=== PATIENT | male | born 1955 | race American Indian/Alaskan Native ===

== ENCOUNTER 2016-11-10 13:48 | Emergency (ER) | payer MEDICARE ==
[2016-11-10 13:57] VITALS: BP 143/93
[2016-11-10 14:34] LABS: Eosinophils % (Auto) 1.2 % (0.0-4.3); Hematocrit 39.8 % (35.5-45.6); Hemoglobin 12.4 gm/dl (11.8-15.2); Mean Corpuscular HGB Conc 31 % (32-34); Mean Corpuscular Volume 79 fl (84-94); Platelet Count 209 K/mm3 (140-440); Red Blood Count 5.06 M/mm3 (3.65-5.03); Red Cell Distribution Width 19.2 % (13.2-15.2)
[2016-11-10 14:36] LABS: Mean Corpuscular Hemoglobin 25 pg (28-32)
[2016-11-10 14:41] LABS: Albumin/Globulin Ratio 1.2 %; Bilirubin,Total 0.3 mg/dL (0.1-1.2); Chloride 99.7 mmol/L (98-107); Potassium 3.7 mmol/L (3.6-5.0); Total Protein 7.3 g/dL (6.3-8.2)
[2016-11-10 15:29] LABS: Bilirubin,Urine NEG (Negative); Blood,Urine MOD (Negative); Ketones,Urine NEG (Negative); Leukocyte Esterase,Urine SM (Negative); Mucus,Urine FEW /HPF; Nitrite,Urine NEG (Negative); Protein,Urine <15 mg/dL mg/dL (Negative); Urobilinogen,Urine < 2.0 mg/dL (<2.0)
== END 2016-11-11 02:00 | disposition left against medical advice (07) ==
LOC: ED 13:48
DX: M54.9 Dorsalgia, unspecified (principal); Z53.21 Procedure and treatment not carried out due to patient leaving prior to being seen by health care provider
CPT/HCPCS: 36415; 80053; 81001; 83690; 85025

== ENCOUNTER 2019-08-29 16:25 | Emergency (ER) | payer MEDICARE ==
--- NOTE | 2019-08-29 17:08 | Emergency Department Report ---
Blank Doc - Documentation Documentation: 64-year-old male that presents with back pain. HX of colon CA. This initial assessment/diagnostic orders/clinical plan/treatment(s) is/are subject to change based on patient's health status, clinical progression and re- assessment by fellow clinical providers in the ED. Further treatment and workup at subsequent clinical providers discretion. Patient/guardians urged not to elope from the ED as their condition may be serious if not clinically assessed and managed. Initial orders include: 1- Patient sent to [facility] for further evaluation and treatment 2- labs 3- UA
[2019-08-29 18:10] LABS: Hematocrit 48.5 % (35.5-45.6); Hemoglobin 15.6 gm/dl (11.8-15.2); Mean Corpuscular HGB Conc 32 % (32-34); Mean Corpuscular Volume 86 fl (84-94); Platelet Count 191 K/mm3 (140-440); Red Blood Count 5.62 M/mm3 (3.65-5.03); Red Cell Distribution Width 19.8 % (13.2-15.2)
[2019-08-29 18:24] LABS: Alanine Aminotransferase 14 units/L (7-56); Albumin 4.2 g/dL (3.9-5); BUN/Creatinine Ratio 16; Blood Urea Nitrogen 18 mg/dL (9-20); Calcium 9.8 mg/dL (8.4-10.2); Hemolysis Index 10
[2019-08-29 18:31] LABS: Bilirubin,Direct < 0.2 mg/dL (0-0.2)
[2019-08-29 19:05] LABS: Basophils % (Manual) 0 % (0.0-1.8); RBC Morphology Normal; Total Cells Counted 100
[2019-08-29] MEDS ORDERED: ONDANSETRON 4 MG/2 ML INJ IV ONE (23:13)
[2019-08-29] MEDS ORDERED: KETOROLAC 30 MG/1 ML INJ IV ONE (23:13)
--- NOTE | 2019-08-29 23:52 | Emergency Department Report ---
ED Back Pain/Injury HPI - General Chief Complaint: Back Pain/Injury Stated Complaint: BACK PAIN, COLON CANCER Time Seen by Provider: 08/29/19 17:05 Source: patient Limitations: No Limitations - History of Present Illness Initial Comments: Mr. East is a 64-year-old -[place] male with a history of Colon CA, diabetes type 2, hypertension, and arthralgia. He presents today for right flank pain,aching radiating to super pubic. There is no fever or chills, no n/v, no hematuria, pt does endorse increased urination no urgency , no saddle numbness, no weakness, no loss or decrease in bowel or bladder function. pt denies hx of prostate ca, or known kidney stone., Complaint: back pain (flank pain) Onset/Timin -: Gradual, days(s) Similar Symptoms Previously: Yes Place: home Radiation: abdomen, flank Severity: moderate Severity scale (0 -10): 4 Quality: aching Consistency: constant Improves With: none Worsens With: movement Associated Symptoms: denies: weakness, chest pain, difficulty walking, difficulty urinating, fever/chills, nausea/vomiting, shortness of breath - Related Data Previous Rx's Medication Instructions Recorded Last Taken Type HYDROcodone/APAP 5-325 [[place] 1 each PO Q6HR PRN #20 tablet 10/19/14 Unknown Rx 5/325] Meloxicam [Mobic] 7.5 mg PO QDAY #30 tablet 10/19/14 Unknown Rx Acetaminophen [Acetaminophen TAB] 1,000 mg PO Q6HR #30 tablet 08/30/19 Unknown R x cephALEXin [Keflex] 500 mg PO BID 7 Days #14 cap 08/30/19 Unknown Rx Allergies Allergy/AdvReac Type Severity Reaction Status Date / Time No Known Allergies Allergy Unverified 10/19/14 10:11 ED Review of Systems ROS: Stated complaint: BACK PAIN, COLON CANCER Other details as noted in HPI Constitutional: denies: chills, fever Eyes: denies: eye pain, eye discharge, vision change ENT: denies: ear pain, throat pain Respiratory: denies: cough, shortness of breath, wheezing Cardiovascular: as per HPI. denies: chest pain, palpitations, dyspnea on exertion Endocrine: no symptoms reported Gastrointestinal: abdominal pain (superpubic ), nausea, hematemesis. denies: vomiting, diarrhea, constipation, melena Genitourinary: dysuria, frequency. denies: urgency, hematuria, discharge, testicular pain, testicular mass Musculoskeletal: back pain, arthralgia, myalgia (right leg ). denies: joint s welling Skin: denies: rash, lesions Neurological: denies: headache, weakness, paresthesias Psychiatric: denies: anxiety, depression Hematological/Lymphatic: denies: easy bleeding, easy bruising ED Past Medical Hx - Past Medical History Previous Medical History?: Yes Hx Hypertension: Yes Hx Diabetes: Yes Additional medical history: Colon CA - Surgical History Past Surgical History?: Yes Additional Surgical History: LEFT KNEE SURGERY. BILATERAL CARPEL TUNNEL RELEASE. JAW SURGERY - Social History Smoking Status: Never Smoker Substance Use Type: None - Medications Home Medications: Home Medications Medication Instructions Recorded Confirmed Last Taken Type HYDROcodone/APAP 5-325 [[place] 1 each PO Q6HR PRN #20 tablet 10/19/14 Unknown Rx 5/325] Meloxicam [Mobic] 7.5 mg PO QDAY #30 tablet 10/19/14 Unknown Rx Acetaminophen [Acetaminophen TAB] 1,000 mg PO Q6HR #30 tablet 08/30/19 Unknown Rx cephALEXin [Keflex] 500 mg PO BID 7 Days #14 cap 08/30/19 Unknown Rx ED Physical Exam - General Limitations: No Limitations General appearance: alert, in no apparent distress - Head Head exam: Present: atraumatic, normocephalic - Eye Eye exam: Present: normal appearance, PERRL, EOMI Pupils: Present: normal accommodation - ENT ENT exam: Present: mucous membranes moist - Neck Neck exam: Present: normal inspection, full ROM. Absent: tenderness, meningismus, lymphadenopathy - Respiratory Respiratory exam: Present: normal lung sounds bilaterally. Absent: respiratory distress, wheezes, rhonchi, chest wall tenderness - Cardiovascular Cardiovascular Exam: Present: regular rate, normal rhythm, normal heart sounds. Absent: systolic murmur, diastolic murmur, rubs, gallop - GI/Abdominal GI/Abdominal exam: Present: soft, normal bowel sounds. Absent: distended, tenderness, bruit, hernia - Rectal Rectal exam: Present: deferred - Extremities Exam Extremities exam: Present: normal inspection, full ROM, normal capillary refill. Absent: tenderness - Back Exam Back exam: Present: normal inspection, full ROM, tenderness, CVA tenderness (R), paraspinal tenderness. Absent: CVA tenderness (L), vertebral tenderness, rash noted - Expanded Back Exam Expanded Back exam: Absent: saddle anesthesia Back exam: Positive Straight Leg Raise: Right, Left - Neurological Exam Neurological exam: Present: alert, oriented X3, CN II-XII intact, normal gait, reflexes normal - Expanded Neurological Exam Expanded Patient oriented to: Present: person, place, time Speech: Present: fluid speech Motor strength exam: RUE: 5, LUE: 5, RLE: 5, LLE: 5 Best Eye Response (Kenneth): (4) open spontaneously Best Motor Response (Kenneth): (6) obeys commands Best Verbal Response (Kenneth): (5) oriented Kenneth Total: 15 - Psychiatric Psychiatric exam: Present: normal affect, normal mood - Skin Skin exam: Present: warm, dry, intact, normal color ED Course Vital Signs 08/29/19 08/29/19 17:08 23:32 Temperature 97.7 F Pulse Rate 99 H Respiratory 22 16 Rate Blood Pressure 124/95 O2 Sat by Pulse 93 Oximetry ED Medical Decision Making - Lab Data Result diagrams: 08/29/19 17:38 08/29/19 17:38 Labs 08/29/19 08/29/19 08/29/19 17:38 17:38 17:38 WBC 8.7 RBC 5.62 H Hgb 15.6 H Hct 48.5 H MCV 86 MCH 28 MCHC 32 RDW 19.8 H Plt Count 191 [place] % (Auto) Board Member Add Manual Diff Complete Total Counted 100 Seg Neuts % (Manual) 62.0 Band Neutrophils % 0 Lymphocytes % (Manual) 17.0 Reactive Lymphs % (Man) 0 Monocytes % (Manual) 20.0 H Eosinophils % (Manual) 1.0 Basophils % (Manual) 0 Metamyelocytes % 0 Myelocytes % 0 Promyelocytes % 0 Blast Cells % 0 Nucleated RBC % Not Reportable Seg Neutrophils # Man 5.4 Band Neutrophils # 0.0 Lymphocytes # (Manual) 1.5 Abs React Lymphs (Man) 0.0 Monocytes # (Manual) 1.7 H Eosinophils # (Manual) 0.1 Basophils # (Manual) 0.0 Metamyelocytes # 0.0 Myelocytes # 0.0 Promyelocytes # 0.0 Blast Cells # 0.0 WBC Morphology Not Reportable Hypersegmented Neuts Not Reportable Hyposegmented Neuts Not Reportable Hypogranular Neuts Not Reportable Smudge Cells Not Reportable Toxic Granulation Not Reportable Toxic Vacuolation Not Reportable Dohle Bodies Not Reportable Pelger-Huet Anomaly Not Reportable David Rods Not Reportable Platelet Estimate Not Reportable Clumped Platelets Not Reportable Plt Clumps, EDTA Not Reportable Large Platelets Not Reportable Giant Platelets Not Reportable Platelet Satelliting Not Reportable Plt Morphology Comment Not Reportable RBC Morphology Normal Dimorphic RBCs Not Reportable Polychromasia Not Reportable Hypochromasia Not Reportable Poikilocytosis Not Reportable Anisocytosis Not Reportable Microcytosis Not Reportable Macrocytosis Not Reportable Spherocytes Not Reportable Pappenheimer Bodies Not Reportable Sickle Cells Not Reportable Target Cells Not Reportable Tear Drop Cells Not Reportable Ovalocytes Not Reportable Helmet Cells Not Reportable [place] Bodies Not Reportable Palisade Rings Not Reportable [place] Cells Not Reportable Bite Cells Not Reportable Crenated Cell Not Reportable Elliptocytes Not Reportable Acanthocytes (Spur) Not Reportable Rouleaux Not Reportable Hemoglobin C Crystals Not Reportable Schistocytes Not Reportable Malaria parasites Not Reportable Enzo Bodies Not Reportable Hem Pathologist Commnt No Sodium 140 Potassium 4.3 Chloride 100.2 Carbon Dioxide 23 Anion Gap 21 BUN 18 Creatinine 1.1 Estimated GFR > 60 BUN/Creatinine Ratio 16 Glucose 78 Calcium 9.8 Total Bilirubin 0.60 Direct Bilirubin < 0.2 Indirect Bilirubin 0.4 AST 24 ALT 14 Alkaline Phosphatase 124 Troponin T < 0.010 Total Protein 8.1 Albumin 4.2 Albumin/Globulin Ratio 1.1 Urine Color Urine Turbidity Urine pH Ur Specific [place] Urine Protein Urine Glucose (UA) Urine Ketones Urine Blood Urine Nitrite Urine Bilirubin Urine Urobilinogen Ur Leukocyte Esterase Urine WBC (Auto) Urine RBC (Auto) U Epithel Cells (Auto) Urine Mucus 08/29/19 08/30/19 23:36 02:18 WBC RBC Hgb Hct MCV MCH MCHC RDW Plt Count [place] % (Auto) Add Manual Diff Total Counted Seg Neuts % (Manual) Band Neutrophils % Lymphocytes % (Manual) Reactive Lymphs % (Man) Monocytes % (Manual) Eosinophils % (Manual) Basophils % (Manual) Metamyelocytes % Myelocytes % Promyelocytes % Blast Cells % Nucleated RBC % Seg Neutrophils # Man Band Neutrophils # Lymphocytes # (Manual) Abs React Lymphs (Man) Monocytes # (Manual) Eosinophils # (Manual) Basophils # (Manual) Metamyelocytes # Myelocytes # Promyelocytes # Blast Cells # WBC Morphology Hypersegmented Neuts Hyposegmented Neuts Hypogranular Neuts Smudge Cells Toxic Granulation Toxic Vacuolation Dohle Bodies Pelger-Huet Anomaly David Rods Platelet Estimate Clumped Platelets Plt Clumps, EDTA Large Platelets Giant Platelets Platelet Satelliting Plt Morphology Comment RBC Morphology Dimorphic RBCs Polychromasia Hypochromasia Poikilocytosis Anisocytosis Microcytosis Macrocytosis Spherocytes Pappenheimer Bodies Sickle Cells Target Cells Tear Drop Cells Ovalocytes Helmet Cells Garcia-[place] Bodies Palisade Rings [place] Cells Bite Cells Crenated Cell Elliptocytes Acanthocytes (Spur) Rouleaux Hemoglobin C Crystals Schistocytes Malaria parasites Enzo Bodies Hem Pathologist Commnt Sodium Potassium Chloride Carbon Dioxide Anion Gap BUN Creatinine Estimated GFR BUN/Creatinine Ratio Glucose Calcium Total Bilirubin Direct Bilirubin Indirect Bilirubin AST ALT Alkaline Phosphatase Troponin T < 0.010 Total Protein Albumin Albumin/Globulin Ratio Urine Color Yellow Urine Turbidity Clear Urine pH 5.0 Ur Specific [place] 1.021 Urine Protein <15 mg/dl Urine Glucose (UA) Neg Urine Ketones Neg Urine Blood Neg Urine Nitrite Neg Urine Bilirubin Neg Urine Urobilinogen < 2.0 Ur Leukocyte Esterase Mod Urine WBC (Auto) 39.0 H Urine RBC (Auto) 9.0 U Epithel Cells (Auto) 2.0 Urine Mucus Few - Radiology Data Radiology results: report reviewed, image reviewed Findings Reporting MD: Marcus Cook Dictation Time: August 29, 2019 23:28 Transc riptionist: Not available Hair Assistant Date: CT abdomen pelvis wo con INDICATION / CLINICAL INFORMATION: RENAL STONE PROTOCOL!!! Pt complains of RIGHT flank pain.. TECHNIQUE: All CT scans at this location are performed using CT dose reduction for ALARA by means of automated exposure control. COMPARISON: None FINDINGS: No free fluid is seen in the abdomen. Diffuse atherosclerotic changes present without evidence of an aneurysm. There is a single gallstone present in the gallbladder. Small bilateral renal cysts are present. The liver, spleen, pancreas and adrenal glands are normal. In the pelvis, no free fluid is seen. The prostate is enlarged. No enlarged lymph nodes are identified. The bladder and the appendix are normal. IMPRESSION: 1. Small bilateral renal cysts 2. Single gallstone in the gallbladder 3. Prostate enlargement 4. No acute findings. No urinary tract stones are seen Signer Name: Marcus Cook MD FACR Signed: 08/29/2019 11:28 PM Workstation Name: [id number] - Medical Decision Making CT scan single gallstone nonobstructing no gallbladder wall thickening no fever no chills there is no white count. UA consistent with UTI with elevated leukocytes and WBCs , patient advises pain is 1/10 after medications given in ED including IV fluids Toradol and Zofran. He is currently tolerating p.o. intake patient is amatory in ED without symptoms. Patient given Rocephin 1 g IM in ED as there is a concern for securing antibiotics. Will DC with prescription for Keflex p.o. patient will continue to hydrate and follow-up with primary care doctor in 2 to 3 days patient verbalized agreement and understanding with same DC to home in stable condition at this time Critical care attestation.: If time is entered above; I have spent that time in minutes in the direct care of this critically ill patient, excluding procedure time. ED Disposition Clinical Impression: UTI (urinary tract infection) Qualifiers: Urinary tract infection type: acute cystitis Hematuria presence: without juancarlos turia Qualified Code(s): N30.00 - Acute cystitis without hematuria Disposition: DC-01 TO HOME OR SELFCARE Is pt being admited?: No Does the pt Need Aspirin: No Condition: Stable Instructions: Urinary Tract Infection in Men (ED) Prescriptions: Acetaminophen [Acetaminophen TAB] 1,000 mg PO Q6HR #30 tablet cephALEXin [Keflex] 500 mg PO BID 7 Days #14 cap Referrals: ALFREDITO SIMS NP [Primary Care Provider] - 3-5 Days Time of Disposition: 03:34
--- NOTE | 2019-08-30 00:32 | Cat Scan Report ---
CT abdomen pelvis wo con INDICATION / CLINICAL INFORMATION: RENAL STONE PROTOCOL!!! Pt complains of RIGHT flank pain.. TECHNIQUE: All CT scans at this location are performed using CT dose reduction for ALARA by means of automated e xposure control. COMPARISON: None FINDINGS: No free fluid is seen in the abdomen. Diffuse atherosclerotic changes present without evidence of an aneurysm. There is a single gallstone present in the gallbladder. Small bilateral renal cysts are pre sent. The liver, spleen, pancreas and adrenal glands are normal. In the pelvis, no free fluid is seen. The prostate is enlarged. No enlarged lymph nodes are identifie d. The bladder and the appendix are normal. IMPRESSION: 1. Small bilateral renal cysts 2. Single gallstone in the gallbladder 3. Prostate enlargement 4. No acute findings. No urinary tract stones are seen Signer Name: Marcus Cook MD FACR Signed: 08/30/2019 12:28 AM Workstation Name: [id number]
[2019-08-30 02:46] LABS: Bilirubin,Urine NEG (Negative); Blood,Urine NEG (Negative); Color,Urine Yellow (Yellow); Mucus,Urine FEW /HPF; Protein,Urine <15 mg/dL mg/dL (Negative); Urobilinogen,Urine < 2.0 mg/dL (<2.0)
[2019-08-30] MEDS ORDERED: LIDOCAINE-MPF (1%) 10 MG/1 ML VIAL 5 ML INFILTRATI ONE (03:31)
[2019-08-30 04:45] VITALS: BP 116/76
== END 2019-08-30 03:51 | disposition home or self-care (01) ==
LOC: ED 16:25
DX: N39.0 Urinary tract infection, site not specified (principal); I10 Essential (primary) hypertension; E11.9 Type 2 diabetes mellitus without complications; Z85.038 Personal history of other malignant neoplasm of large intestine
CPT/HCPCS: 36415; 74176; 80048; 80076; 81001; 84484; 85007; 85025; 87086; 93005; 93010; 96372; 96374; 96375; 99284; J0696; J1885; J2405